=== PATIENT | female | born 1975 | race African-American/Black ===

== ENCOUNTER 2024-08-17 03:44 | Emergency (ER) | payer SELFPAY ==
[2024-08-17 03:50] VITALS: BP 147/83; PULSE 101; RESP 16; TEMP 37.7; O2SAT 100
[2024-08-17 05:36] LABS: Influenza A QL RT-PCR Positive (Negative); Influenza B QL RT-PCR Negative (Negative); RSV RNA, RT-PCR Negative (Negative); SARS-CoV-2 RNA PCR Negative (Negative)
[2024-08-17 05:39] VITALS: O2SAT 99
[2024-08-17 05:52] VITALS: BP 147/96; PULSE 99; RESP 15; O2SAT 99
--- NOTE | 2024-08-17 06:08 | ED.GENADULT ---
HPI - General Adult General Chief complaint: Upper Respiratory Infection Stated complaint: unk Time Seen by Provider: 08/17/24 05:47 History of Present Illness HPI narrative: Patient is 49-year-old female who presents to the emergency department this evening complaining of flu-like symptoms with started yesterday. Patient states that she started having a cough, body ache, sore throat and fevers. She has been taking [id number] medications and she stated that the last medicine she took was ibuprofen at 10:00 a.m. yesterday. Denies any chest pain, nausea vomiting with diarrhea. No additional symptoms or concerns at this time. Related Data Allergies Allergy/AdvReac Type Severity Reaction Status Date / Time aspirin Allergy Unknown Verified 08/17/24 05:40 Review of Systems Review of Systems: All systems are reviewed and are negative unless stated otherwise in the HPI. Exam Narrative: General: Alert, awake, afebrile, in no acute distress. HEENT: PERRL, no rhinorrhea, no post nasal drip, oropharynx clear. Neck: Trachea midline, no JVD, no lymphadenopathy. Cardiovascular: Regular rate and rhythm, no murmurs, rubs or gallops, no peripheral edema. Respiratory: Clear to auscultation bilaterally, no tachypnea, no wheezing, no rhonchi, no rubs, no respiratory distress. Abdomen: Soft, nontender, nondistended, no rebound, no guarding, no peritoneal signs. Musculoskeletal: No joint swelling or deformity, normal muscle tone. Skin: No rashes or petechia, no signs of infection. Psychiatric: Alert and oriented, normal behavior and judgment for situation. Neurological: Alert and oriented to person, place, and time. Follows all commands. No focal deficits, speech is clear and fluent. Course Vital Signs Vital signs: Vital Signs Temperature 99.9 F H 08/17/24 03:50 Pulse Rate 101 H 08/17/24 03:50 Respiratory Rate 16 08/17/24 03:50 Blood Pressure 147/83 H 08/17/24 03:50 Pulse Oximetry 100 08/17/24 03:50 Oxygen Delivery Room Air 08/17/24 03:50 Temperature 99.9 F H 08/17/24 03:50 Pulse Rate 99 08/17/24 05:52 Respiratory Rate 15 08/17/24 05:52 Blood Pressure 147/96 H 08/17/24 05:52 Pulse Oximetry 99 08/17/24 05:52 Oxygen Delivery Room Air 08/17/24 05:39 Medical Decision Making MDM Narrative Medical decision making narrative: The patient was evaluated by myself in the emergency department. History is obtained from patient who is an independent historian and physical exam was performed. External medical records were reviewed at this time. Patient was administered 1 g of Tylenol oral at this time. Viral swabs were obtained and noted to be positive for influenza A. At this time patient was administered her 1st dose of Tamiflu in the emergency department and informed that the rest of her script will be sent to her pharmacy to take as prescribed for the next 5 days. Differential diagnosis considerations include acute viral syndrome including COVID/influenza/RSV. Comorbidities impacting this visit include none. I have evaluated and discussed social determinants of health with the patient that could potentially impact subsequent diagnosis and treatment plans. On repeat assessment of the patient, reevaluation revealed that the patient is doing well and is in no acute distress. Patient symptoms have improved since she arrived to our emergency department. Repeat vital signs were all reviewed and noted to be stable. Differential diagnosis and treatment plan were discussed with the patient at bedside. Patient agrees with discussion and after shared medical decision making agrees with discharge. All questions were answered to the patient's satisfaction. Patient will follow up with her PCP in 3-5 days. Patient was provided with strict return precautions and instructed to return to the emergency department if any new or worsening symptoms develop. The patient was discharged in stable condition. Vital Signs Vital Signs: Vital Signs Temperature 99.9 F H 08/17/24 03:50 Pulse Rate 101 H 08/17/24 03:50 Respiratory Rate 16 08/17/24 03:50 Blood Pressure 147/83 H 08/17/24 03:50 Pulse Oximetry 100 08/17/24 03:50 Oxygen Delivery Room Air 08/17/24 03:50 Temperature 99.9 F H 08/17/24 03:50 Pulse Rate 99 08/17/24 05:52 Respiratory Rate 15 08/17/24 05:52 Blood Pressure 147/96 H 08/17/24 05:52 Pulse Oximetry 99 08/17/24 05:52 Oxygen Delivery Room Air 08/17/24 05:39 Lab Data Labs: Lab Results 08/17/24 Range/Units 03:55 Influenza A (RT-PCR) Positive A (Negative) Influenza B (RT-PCR) Negative (Negative) RSV (RT-PCR) Negative (Negative) SARS-CoV-2 RNA (RT-PCR) Negative (Negative) Discharge Plan Discharge Clinical Impression: Influenza Patient Disposition: Home, Self-Care Condition: Improved Instructions: Antibiotic Form, Influenza (ED) Additional Instructions: Please follow-up with your family doctor within the next 3-5 days. Maintain your oral hydration by drinking lots of fluids. Use Tylenol and or ibuprofen for fevers. Take the prescribed Tamiflu as instructed. Patient Language: Argentine Prescriptions: New oseltamivir [Tamiflu] 75 mg capsule 75 mg PO Q12H 5 Days Qty: 10 0RF Follow-up/Referrals: Dayton Grimes MD [Physician] - 3 Days UNKNOWN,DOCTOR [Primary Care Provider] - Time of Disposition: 06:11
--- OUTSIDE RECORDS SUMMARY | 2024-08-17 06:20 | XMS_ITS | Referral Summary ---
Author Organization [facility] Address [address] [place] [address] Care Team Providers Care Central Supply Nurse Name Role Phone Parvin Powers MD Primary Care Provider [phone] Source Comments [facility],non-owned Affiliates and Associated Physician Practices is amultiple site organization consisting of ambulatory clinics and hospital sitesin [place], [place], [place] and [place]. This disclosure is being madepursuant to the Care Everywhere program and may not contain all information available regarding this patient. Last updated 18.[facility] Encounters Date Type Department Care Team Description 07/20/2024 Travel 07/20/2024 8:35 AM FOUR SLIDE OPERATOR - 07/20/2024 10:44 AM FOUR SLIDE OPERATOR Emergency ER at [address] [address] Chito Morillo MD Acute alcoholic intoxication without complication (HCC) (Primary Dx) Discharge Disposition: Left Against Medical Advice/Discontinued Care from Last 3 Months Allergies Active Allergy Reactions Criticality Noted Date Comments Aspirin Urticaria Medium 05/20/2021 [place] Medications * Be aware that medications may not be up to date on this document. Alwaysverify current medications with the patient. Medication Sig Dispensed Refills Start Date End Date Status escitalopram (Lexapro) 10 MG tabletIndications:M ajor Depressive Disorder Take 1 (one) tablet by mouth once daily Reasons: Major Depressive Disorder 15 tablet 1 02/14/2024 Active folic acid (Folvite) 1 MG tabletIndications:N utritional support Take 1 (one) tablet by mouth once daily Reasons: Nutritional support 15 tablet 1 02/14/2024 Active hydrOXYzine HCl (Atarax) 10 MG tabletIndications:A nxiety Take 1 (one) tablet by mouth 4 times daily Reasons: Feeling Anxious 60 tablet 1 02/14/2024 Active naltrexone (Revia) 50 MG tabletIndications:A lcohol Use Disorder Take 1 (one) tablet by mouth once daily Reasons: Abuse or Misuse of Alcohol 15 tablet 1 02/14/2024 Active QUEtiapine (SEROquel) 25 MG tabletIndications:I nsomnia,Major Depressive Disorder Take 1 (one) tablet by mouth at bedtime Reasons: Major Depressive Disorder, Trouble Sleeping 15 tablet 1 02/14/2024 Active thiamine (Vitamin B-1) 100 MG tabletIndications:N utritional support Take 1 (one) tablet by mouth once daily Reasons: Nutritional support 15 tablet 1 02/14/2024 Active Active Problems Problem Noted Date Diagnosed Date Mood disorder 12/31/2023 Resolved Problems Problem Noted Date Diagnosed Date Resolved Date Pneumonia due to organism 08/09/2017 Immunizations Name Administration Dates Next Due INFLUENZA VACCINE, QUADR. (F LUZONE; FLULAVAL; FLUARIX; AFLURIA QUADRIVALENT; 6MO+), 0.5 ML (IIV4) 08/10/2017 Social History Tobacco Use Types Packs/Day Years Used Date Smoking Tobacco: Former Cigarettes Smokeless Tobacco: Never Tobacco Cessation:Counseling Given: Yes Alcohol Use Standard Drinks/Week Comments Yes 0 (1 standard drink = 0.6 oz pur e alcohol) 1 pint of Pierre Part daily AUDIT-C Answer Date Recorded Q1: How often do you have a drink containing alcohol? 2-3 times a week 02/14/2024 Q2: How many drinks containi ng alcohol do you have on a typical day when you are drinking? 10 or more Q3: How often do you have si x or more drinks on one occasion? Daily or almost daily 02/14/2024 Overall Financial Resource Strain (CARDIA) Answe r Date Recorded How hard is it for you to pa y for the very basics like food, housing, medical care, and heating? Very hard 12/31/2023 PHQ-2 Answer Date Recorded Patient Health Questionnaire-2 Score 1 02/14/2024 [facility] - Occupational Stress Questionnaire Answer Date Recorded Do you feel stress - tense, restless, nervous, or anxious, or unable to sleep at night because your mind is troubled all the time - these days? Rather much 12/31/2023 Hunger Vital Sign Answer Date Recorded Within the past 12 months, y ou worried that your food would run out before you got the money to buy more. Sometimes true Within the past 12 months, t he food you bought just didn't last and you didn't have money to get more. Sometimes true 11/2023 PRAPARE - Transportation Answer Date Re corded In the past 12 months, has l ack of transportation kept you from medical appointments or from getting medications? Yes 11/2023 In the past 12 months, has l ack of transportation kept you from meetings, work, or from getting things needed for daily living? Yes 12/31/2023 Housing Stability Vital Sign Answer Pollo e Recorded In the last 12 months, was t here a time when you were not able to pay the mortgage or rent on time? Yes 12/31/2023 In the last 12 months, how many places have you lived? 1 12/31/2023 In the last 12 months, was t here a time when you did not have a steady place to sleep or slept in a chcf (including now)? Yes 12/31/2023 Sex and Gender Information Value Date Recorded Sex Assigned at Not on file Gender Identity Not on file Sexual Orientation Not on file Last Filed Vital Signs Vital Sign Reading Time Taken Comments Blood Pressure 156/84 07/20/2024 10:43 AM FOUR SLIDE OPERATOR Pulse 81 07/20/2024 10:43 AM FOUR SLIDE OPERATOR Temperature 36.6 C (97.9 F) 07/20/2024 10:43 AM FOUR SLIDE OPERATOR Respiratory Rate 18 07/20/2024 10:43 AM FOUR SLIDE OPERATOR Oxygen Saturation 97% 07/20/2024 10:43 AM FOUR SLIDE OPERATOR Inhaled Oxygen Concentration 21% 08/11/2017 8 :38 AM FOUR SLIDE OPERATOR Weight 69.2 kg (152 lb 9.6 oz) 02/16/2024 11:34 AM CDT Height 175.3 cm (5' 9 ) 02/16/2024 11:34 AM CDT Body Mass Index 22.54 02/16/2024 11:34 AM CDT Functional Status Functional Status Response Date of Assess ment Is person deaf or have serious hearing difficult y? No 12/31/2023 Is person blind or have serious difficulty seein g? No 12/31/2023 Does person have serious dif ficulty walking/climbing stairs? No 12/31/2023 Does person have difficulty dressing/bathing? No 12/31/2023 Does person have difficulty doing errands alone? No 12/31/2023 Cognitive Status Response Date of Assessm ent Does person have difficulty concentrating/remembering/making decisions? No 12/31/2023 Plan of Treatment Not on file Procedures Procedure Name Priority Date/Time Associated Diagnosis Comments LIPID PROFILE AM Draw 01/01/2024 6:14 AM CDT MAMMO BILAT SCREENING W LORENA Routine 06/21/2023 2:57 PM FOUR SLIDE OPERATOR Encounter for screening mammogram for malignant neoplasm of breast from Last 3 Months or Most Recently Relevant to Health Maintenance Results * LIPID PROFILE (01/01/2024 6:14 AM CDT) Cholesterol 186 <200 mg/dL 01/01/2024 6:49 AM CDT [facility] Triglycerides 90 <150 mg/dL 01/01/2024 6:49 AM CDT [facility] HDL Cholesterol 115 >40 mg/dL 4 6:49 AM CDT [facility] LDL Calculated 53 <130 mg/dL 01/01/2024 6:49 AM CDT [facility] VLDL Calculated 18 <=30 mg/dL 4 6:49 AM CDT [facility] Chol HDL Ratio 1.6 <4.5 01/01/2024 6:49 AM CDT [facility] LDL/HDL Ratio 0.5 <5.0 01/01/2024 6:49 AM CDT [facility] Blood BLOOD SPECIMEN / Unknown Venipuncture / Unknown 01/01/2024 6:14 AM CDT 01/01/2024 6:21 AM CDT Jesse Castro MD LAB - CHEMISTRY JENNI PLATA [facility] Organization Address City/State/ZIP Co de Phone Number [facility] [address] [place] [address] * MAMMO BILAT SCREENING W LORENA (06/21/2023 2:57 PM FOUR SLIDE OPERATOR) Anatomical Region Laterality Modality Breast Bilateral Mammography 06/21/2023 3:15 PM FOUR SLIDE OPERATOR Impressions 06/21/2023 3:19 PM FOUR SLIDE OPERATOR : Annual screening mammography is recommended. OVERALL FINAL ASSESSMENT: BI-RADS Category 1: Negative. > Interpreting Provider: Dexter Menchaca MD on 06/21/2023 3:19 PM Narrative 06/21/2023 3:19 PM FOUR SLIDE OPERATOR EXAMINATION: BILATERAL DIGITAL SCREENING MAMMOGRAM AND BILATERAL BREAST TOMOSYNTHESIS HISTORY: Screening. COMPARISON: Baseline TECHNIQUE: BILATERAL digital breast tomosynthesis (DBT) and synthetic 2D digital mammogram images were obtained (bilateral craniocaudal and mediolateral oblique projections) including computer aided detection (CAD.) BREAST PARENCHYMAL COMPOSITION:Category C: The breasts are heterogeneously dense which may obscure small masses. MAMMOGRAM FINDINGS: There is no suspicious finding in either breast. Leta Shannon DO MAMMO ORDERABLES from Last 3 Months or Most Recently Relevant to Health Maintenance Advance Directives * Full Code (Latest Code Status on File) Date Activated Date Inactivated Comments 12/31/2023 5:47 PM 01/04/2024 1:53 PM * Full Code Date Activated Date Inactivated Comments 08/09/2017 2:40 AM 08/11/2017 2:12 PM * Full Code Date Activated Date Inactivated Comments 10/08/2015 4:26 AM 10/10/2015 7:26 PM Care Teams Central Supply Nurse Relationship Specialty Start Date End Date Parvin Powers MD [address] [id number] PCP - General Internal Medicine 05/25/20
--- OUTSIDE RECORDS SUMMARY | 2024-08-17 06:20 | XMS_ITS | Patient Health Summary ---
Author Organization [facility] Address [address] [place] [address] Care Team Providers Care Pug Machine Operator Name Role Phone Parvin Powers MD Primary Care Provider [phone] Note from [facility],non-owned Affiliates and Associated Physician Practices is amultiple site organization consisting of ambulatory clinics and hospital sitesin [place], [place], [place] and [place]. This disclosure is being madepursuant to the Care Everywhere program and may not contain all information available regarding this patient. Last updated 18.[facility] PriceAdvice Allergies * Aspirin(Urticaria) -Medium Criticality Medications * Be aware that medications may not be up to date on this document. Alwaysverify current medications with the patient. * escitalopram (Lexapro) 10 MG tablet(Started 02/14/2024) Take 1 (one) tablet by mouth once daily Reasons: Major Depressive Disorder 1 refill by 02/13/2025 * folic acid (Folvite) 1 MG tablet(Started 02/14/2024) Take 1 (one) tablet by mouth once daily Reasons: Nutritional support 1 refill by 02/13/2025 * hydrOXYzine HCl (Atarax) 10 MG tablet(Started 02/14/2024) Take 1 (one) tablet by mouth 4 times daily Reasons: Feeling Anxious 1 refill by 02/13/2025 * naltrexone (Revia) 50 MG tablet(Started 02/14/2024) Take 1 (one) tablet by mouth once daily Reasons: Abuse or Misuse of Alcohol 1 refill by 02/13/2025 * QUEtiapine (SEROquel) 25 MG tablet(Started 02/14/2024) Take 1 (one) tablet by mouth at bedtime Reasons: Major Depressive Disorder, Trouble Sleeping 1 refill by 02/13/2025 * thiamine (Vitamin B-1) 100 MG tablet(Started 02/14/2024) Take 1 (one) tablet by mouth once daily Reasons: Nutritional support 1 refill by 02/13/2025 Active Problems Problem Noted Date Diagnosed Date Mood disorder 12/31/2023 Resolved Problems Problem Noted Date Diagnosed Date Resolved Date Pneumonia due to organism 08/09/2017 Immunizations * INFLUENZA VACCINE, QUADR. (FLUZONE; FLULAVAL; FLUARIX; AFLURIA QUADRIVALENT; 6MO+), 0.5 ML (IIV4)(Given 08/10/2017) Social History Tobacco Use Types Packs/Day Years Used Date Smoking Tobacco: Former Cigarettes Smokeless Tobacco: Never Tobacco Cessation:Counseling Given: Yes Alcohol Use Standard Drinks/Week Comments Yes 0 (1 standard drink = 0.6 oz pur e alcohol) 1 pint of [place] daily AUDIT-C Answer Date Recorded Q1: How [...] Recorded Patient Health Questionnaire-2 Score 1 02/14/2024 [facility] - Occupational [...] place to sleep or slept in a senior living (including now)? Yes 12/31/2023 Sex and Gender Information Value Date Recorded Sex Assigned at Not on file Gender Identity Not on file Sexual Orientation Not on file Last Filed Vital Signs Vital Sign Reading Time Taken Comments Blood Pressure 156/84 07/20/2024 10:43 AM COMMERCIAL MANAGER Pulse 81 07/20/2024 10:43 AM COMMERCIAL MANAGER Temperature 36.6 C (97.9 F) 07/20/2024 10:43 AM COMMERCIAL MANAGER Respiratory Rate 18 07/20/2024 10:43 AM COMMERCIAL MANAGER Oxygen Saturation 97% 07/20/2024 10:43 AM COMMERCIAL MANAGER Inhaled Oxygen Concentration 21% 08/11/2017 8 :38 AM COMMERCIAL MANAGER Weight 69.2 kg (152 lb 9.6 oz) 02/16/2024 11:34 AM CDT Height 175.3 cm (5' 9 ) 02/16/2024 11:34 AM CDT Body Mass Index 22.54 02/16/2024 11:34 AM CDT Procedures * CARDIAC EKG ORDER(Performed 02/15/2024) * CBC W AUTO DIFFERENTIAL(Performed 02/14/2024) * COMPREHENSIVE METABOLIC PANEL(Performed 02/14/2024) * DRUG SCREEN TOX LIMITED BLD PNL 3 INHOUSE(Performed 02/14/2024) * EKG 12-LEAD(Performed 02/14/2024) Performed for Intentional overdose, initial encounter (HCC) * HCG URINE QUALITATIVE(Performed 02/14/2024) * URINE DRUG SCREEN IMMUNOASSAY(Performed 02/14/2024) * URINALYSIS REFLEX MICROSCOPIC REFLEX CULTURE(Performed 02/14/2024) * HCG URINE QUALITATIVE(Performed 01/03/2024) * URINE DRUG SCREEN IMMUNOASSAY(Performed 01/03/2024) * URINALYSIS REFLEX TO MICROSCOPIC NO CULTURE(Performed 01/03/2024) * TSH REFLEX FREE T4(Performed 01/01/2024) * LIPID PROFILE(Performed 01/01/2024) * HEMOGLOBIN A1C(Performed 01/01/2024) * COMPREHENSIVE METABOLIC PANEL(Performed 01/01/2024) * CBC W AUTO DIFFERENTIAL(Performed 01/01/2024) * MAMMO BILAT SCREENING W LORENA(Performed 06/21/2023) Performed for Encounter for screening mammogram for malignant neoplasm of breast * URINALYSIS REFLEX MICROSCOPIC REFLEX CULTURE(Performed 09/30/2021) * HCG URINE QUALITATIVE(Performed 09/30/2021) * URINE DRUG SCREEN IMMUNOASSAY(Performed 09/30/2021) * HCG URINE QUALITATIVE(Performed 06/05/2020) * TROPONIN I(Performed 06/05/2020) * CT HEAD WO CONTRAST(Performed 06/05/2020) Performed for Altered mental status, unspecified altered mental status type * URINALYSIS REFLEX MICROSCOPIC REFLEX CULTURE(Performed 06/05/2020) * URINE DRUG SCREEN IMMUNOASSAY(Performed 06/05/2020) * TROPONIN I(Performed 06/05/2020) * DRUG SCREEN TOX LIMITED BLD PNL 3 INHOUSE(Performed 06/05/2020) * COMPREHENSIVE METABOLIC PANEL(Performed 06/05/2020) * CBC W AUTO DIFFERENTIAL(Performed 06/05/2020) * EKG 12-LEAD(Performed 06/05/2020) Performed for Altered mental status, unspecified altered mental status type * CARDIAC EKG ORDER(Performed 09/12/2018) * DIFFERENTIAL MANUAL(Performed 09/11/2018) * TROPONIN I(Performed 09/11/2018) * COMPREHENSIVE METABOLIC PANEL(Performed 09/11/2018) * CBC W AUTO DIFFERENTIAL(Performed 09/11/2018) * ALCOHOL ETHYL BLOOD(Performed 09/11/2018) * EKG 12-LEAD(Performed 09/10/2018) Performed for Syncope and collapse * TRICHOMONAS RAPID TEST(Performed 12/09/2017) * CHLAMYDIA + GC AMPLIFIED PROBE(Performed 12/09/2017) * HCG URINE QUALITATIVE(Performed 12/09/2017) * URINE MICROSCOPIC ONLY REFLEX TO CULTURE(Performed 12/09/2017) * URINALYSIS REFLEX MICROSCOPIC REFLEX CULTURE(Performed 12/09/2017) * CULTURE URINE(Performed 12/09/2017) * ED EAR CERUMEN REMOVAL(Performed 09/24/2017) * URINE MICROSCOPIC ONLY REFLEX TO CULTURE(Performed 09/24/2017) * URINALYSIS REFLEX MICROSCOPIC REFLEX CULTURE(Performed 09/24/2017) * CULTURE URINE(Performed 09/24/2017) * CARDIAC RHYTHM STRIP ORDER(Performed 08/16/2017) * CARDIAC EKG ORDER(Performed 08/10/2017) * INFLUENZA A+B+RSV PCR PANEL(Performed 08/09/2017) * CT ANGIO CHEST PULM EMBOLISM(Performed 08/09/2017) Performed for Pneumonia due to organism * HCG URINE QUALITATIVE - POINT OF CARE(Performed 08/09/2017) * CULTURE BLOOD(Performed 08/09/2017) * CULTURE BLOOD(Performed 08/09/2017) * XR CHEST 1VW PORTABLE(Performed 08/08/2017) Performed for SOB (shortness of breath), Cough * URINE MICROSCOPIC ONLY REFLEX TO CULTURE(Performed 08/08/2017) * URINALYSIS REFLEX MICROSCOPIC REFLEX CULTURE(Performed 08/08/2017) * CULTURE URINE(Performed 08/08/2017) * D-DIMER(Performed 08/08/2017) * COMPREHENSIVE METABOLIC PANEL(Performed 08/08/2017) * CBC W AUTO DIFFERENTIAL(Performed 08/08/2017) * NT-PRO BNP(Performed 08/08/2017) * INFLUENZA A+B ANTIGEN RAPID(Performed 08/08/2017) * EKG 12-LEAD(Performed 08/08/2017) Performed for SOB (shortness of breath) * HCG URINE QUALITATIVE - POINT OF CARE(Performed 10/14/2016) * XR FINGER(S) RIGHT(Performed 09/01/2016) Performed for Work related injury * XR WRIST LEFT 3VW OR MORE(Performed 09/01/2016) Performed for Work related injury * INFLUENZA A+B ANTIGEN RAPID(Performed 08/04/2016) * XR CHEST 2VW(Performed 08/04/2016) Performed for Wheezing * EYE IRRIGATION WITH SAMPSON LENS(Performed 01/09/2016) * RPR(Performed 10/08/2015) * TSH(Performed 10/08/2015) * URINALYSIS REFLEX TO MICROSCOPIC NO CULTURE(Performed 10/08/2015) * URINE DRUG SCREEN IMMUNOASSAY(Performed 10/08/2015) * DRUG SCREEN TOX LIMITED BLD PNL 3 INHOUSE(Performed 10/07/2015) * COMPREHENSIVE METABOLIC PANEL(Performed 10/07/2015) * CBC W AUTO DIFFERENTIAL(Performed 10/07/2015) Results * CARDIAC EKG ORDER (02/15/2024 5:53 PM CDT) Only the most recent of3 resultswithin the time period is included. Narrative 02/15/2024 5:53 PM CDT Ordered by an unspecified provider. Scanned Document CARDIAC SERVICES ORD ERABLES * (ABNORMAL) CBC W AUTO DIFFERENTIAL (02/14/2024 7:00 PM CDT) Only the most recent of6 resultswithin the time period is included. WBC 6.1 4.0 - 10.7 x10E9/L 02/14/2024 7:19 PM CDT [facility] RBC Count 3.92 3.90 - 5.20 x10E12/L 02/14/2024 7:19 PM CDT [facility] Hemoglobin 11.1(L) 11.9 - 15.8 g/dL 02/14/2024 7:19 PM CDT [facility] Hematocrit 34.9 34.8 - 46.1 % 02/14/2024 7:19 PM CDT [facility] MCV 89.0 80.0 - 98.0 fL 02/14/2024 7:19 PM CDT [facility] MCH 28.3 26.7 - 33.6 pg 02/14/2024 7:19 PM CDT [facility] MCHC 31.8 31.7 - 36.3 g/dL 02/14/2024 7:19 PM CDT [facility] RDW-CV 16.0(H) 11.3 - 14.8 % 02/14/2024 7:19 PM CDT [facility] Platelet Count 387 150 - 420 x10E9/L 02/14/2024 7:19 PM CDT [facility] MPV 9.9 7.8 - 11.4 fL 02/14/2024 7:19 PM CDT [facility] Neutrophil % 27.6(L) 41.0 - 74.0 % 02/14/2024 7:19 PM CDT [facility] Lymphocyte % 59.4(H) 17.0 - 47.0 % 02/14/2024 7:19 PM CDT [facility] Monocyte % 7.5 3.0 - 11.0 % 02/14/2024 7:19 PM CDT [facility] Eosinophil % 4.6 0.0 - 7.0 % 02/14/2024 7:19 PM CDT [facility] Basophil % 0.7 0.0 - 1.6 % 02/14/2024 7:19 PM CDT [facility] Immature Granulocytes % 0.2 0.0 - 1.0 % 02/14/2024 7:19 PM CDT [facility] Neutrophil Absolute 1.69 1.60 - 7.50 x10E9/L 02/14/2024 7:19 PM CDT [facility] Lymphocyte Absolute 3.63 1.00 - 4.40 x10E9/L 02/14/2024 7:19 PM CDT [facility] Monocyte Absolute 0.46 0.15 - 1.00 x10E9/L 02/14/2024 7:19 PM CDT [facility] Eosinophil Absolute 0.28 0.00 - 0.60 x10E9/L 02/14/2024 7:19 PM CDT [facility] Basophil Absolute 0.04 0.00 - 0.13 x10E9/L 02/14/2024 7:19 PM CDT [facility] Blood BLOOD SPECIMEN / Unknown Venipuncture / Unknown 02/14/2024 7:00 PM CDT 02/14/2024 7:16 PM CDT Yaneth Sellers MD LAB - HEMATOLOGY ORD ERABLES [facility] [address] [place] [address] * (ABNORMAL) DRUG SCREEN TOX LIMITED BLD PNL 3 INHOUSE (02/14/2024 4:53 PM CDT) Only the most recent of3 resultswithin the time period is included. Acetaminophen <3.0(L) 10.0 - 30.0 ug/mL 02/14/2024 5:24 PM CDT [facility] Ethanol 287.0(H) <10 mg/dL 02/14/2024 5:24 PM CDT [facility] Salicylate <5.0(L) 15.0 - 30.0 mg/dL 02/14/2024 5:24 PM CDT [facility] Blood BLOOD SPECIMEN / Unknown Venipuncture / Unknown 02/14/2024 4:53 PM CDT 02/14/2024 5:03 PM CDT Narrative [facility] - 02/14/2024 5:24 PM CDT [facility] ACETAMINOPHEN COMMENT Critical values: 4 Hours Post Ingestion: Critical value > 200 g/mL 12 Hours Post Ingestion: Critical value > 50 g/mL For acute ingestion, please refer to Acetaminophen nomogram to determine the risk of toxicity based on time since ingestion and acetaminophen level (see link provided). Note the nomogram disclaimer. WARNING: Assessing the potential toxicity of an acetaminophen level on a standard risk nomogram must take into consideration many factors including any uncertainty of the time since ingestion or the possibility of other medications that may alter the peak level. Contact the [place] [facility] at or reserved for healthcare professionals to assist you in evaluating potentially toxic acetaminophen levels. Yaneth Sellers MD LAB - CHEMISTRY JENNI [facility] Organization Address City/State/ZIP Co de Phone Number [facility] [address] [place] [address] * (ABNORMAL) COMPREHENSIVE METABOLIC PANEL (02/14/2024 4:53 PM CDT) Only the most recent of6 resultswithin the time period is included. [facility] Glucose 98 70 - 105 mg/dL 02/14/2024 7:03 PM CDT [facility] Sodium 143 136 - 145 mmol/L 02/14/2024 7:03 PM CDT [facility] Potassium 4.5 3.5 - 5.1 mmol/L 02/14/2024 7:03 PM T [facility] Comment:Specimen is Moderate ly Hemolyzed. This potassium result may be falsely elevated. Chloride 110(H) 98 - 107 mmol/L 02/14/2024 7:03 PM CDT [facility] CO2 18(L) 22 - 29 mmol/L 02/14/2024 7:03 PM CDT [facility] Calcium 8.8 8.4 - 10.4 mg/dL 02/14/2024 7:03 PM CDT [facility] Anion Gap 15 6 - 16 mmol/L 02/14/2024 7:03 PM CDT [facility] BUN 10 5.3 - 18.7 mg/dL 02/14/2024 7:03 PM CDT [facility] Creatinine 0.77 0.57 - 1.11 mg/dL 02/14/2024 7:03 PM CDT [facility] Alkaline Phosphatase 59 40 - 150 U/L 02/14/2024 7:03 PM CDT [facility] ALT 12 0 - 55 U/L 02/14/2024 7:03 PM CDT [facility] AST 33 5 - 34 U/L 02/14/2024 7:03 PM CDT [facility] Comment:Specimen is Moderate ly Hemolyzed. This AST result may be falsely elevated. Protein Total 7.8 6.4 - 8.3 gm/dL 02/14/2024 7:03 PM CDT [facility] Comment:Specimen is Moderate ly Hemolyzed. This total protein result may be falsely elevated. Albumin 3.7 3.4 - 5.0 gm/dL 02/14/2024 7:03 PM CDT [facility] Bilirubin Total 0.3 0.2 - 1.2 mg/dL 02/14/2024 7:03 PM CDT [facility] eGFR by CKD-EPI >90 >=90 mL/min/1.7 3 m2 02/14/2024 7:03 PM CDT [facility] Blood BLOOD SPECIMEN / Unknown Venipuncture / Unknown 02/14/2024 4:53 PM CDT 02/14/2024 5:03 PM CDT Yaneth Sellers MD LAB - CHEMISTRY JENNI PLATA [facility] Organization Address City/State/ZIP Co de Phone Number [facility] [address] [place] [address] * EKG 12-LEAD (02/14/2024 4:41 PM CDT) Only the most recent of4 resultswithin the time period is included. Ventricular Rate 99 BPM [facility] Atrial Rate 99 BPM [facility] P-R Interval 148 ms [facility] QRS Duration ms 72 ms [facility] Q-T Interval ms 352 ms [facility] QTC Calculation (Bezet) 451 ms [facility] Calculated P [place] 54 degrees [facility] Calculated R [place] 55 degrees [facility] Calculated T [place] 58 degrees [facility] Interpretation EKG Normal sinus rhythm Normal ECG Confirmed by LEIF BOYKIN MD ([id number]) on 02/15/2024 8:56:43 PM [facility] 02/14/2024 4:41 PM CDT 02/15/2024 8:56 PM CDT Yaneth Sellers MD ECG ORDERABLES [facility] * (ABNORMAL) URINALYSIS REFLEX MICROSCOPIC REFLEX CULTURE (02/14/2024 4:24 PM CDT) Only the most recent of6 resultswithin the time period is included. Color UA Colorless(A) Yellow, Straw 02/14/2024 4:43 PM CDT [facility] Clarity UA Turbid(A) Clear 02/14/2024 4:43 PM CDT [facility] Glucose UA Normal Normal 02/14/2024 4:43 PM CDT [facility] Bilirubin UA Negative Negative 02/14/2024 4:43 PM CDT [facility] Ketone UA Negative Negative 02/14/2024 4:43 PM CDT [facility] Specific [place] UA 1.006 1.005 - 1.030 02/14/2024 4:43 PM CDT [facility] Blood UA Negative Negative 02/14/2024 4:43 PM CDT [facility] pH UA 5.5 5.0 - 9.0 pH 02/14/2024 4:43 PM CDT [facility] Protein UA Negative Negative 02/14/2024 4:43 PM CDT [facility] Urobilinogen UA Normal Normal mg/dL 02/14/2024 4:43 PM CDT [facility] Nitrite UA Negative Negative 02/14/2024 4:43 PM CDT [facility] Leukocyte UA Negative Negative 02/14/2024 4:43 PM CDT [facility] Urine Microscopy Urine microscopy not indicated 02/14/2024 4:43 PM CDT [facility] Reflex Status Culture not indicated 02/14/2024 4:43 PM CDT [facility] Urine URINE SPECIMEN OBTAINED BY CLEAN CATCH PROCEDURE / Unknown Collection / Unknown 02/14/2024 4:24 PM CDT 02/14/2024 4:39 PM CDT Narrative [facility] - 02/14/2024 4:43 PM CDT Yaneth Sellers MD LAB - URINALYSIS ORD ERABLES Performing Organization Address [facility] de Phone Number [facility] [address] [place] [address] * HCG URINE QUALITATIVE (02/14/2024 4:24 PM CDT) Only the most recent of5 resultswithin the time period is included. [facility] hCG Qualitative Urine Negative Negative 02/14/2024 5:39 PM CDT [facility] Urine URINE / Unknown Collection / Unknown 02/14/2024 4:24 PM CDT 02/14/2024 4:39 PM CDT Narrative [facility] - 02/14/2024 5:39 PM CDT Specimens containing human anti-mouse antibodies may exhibit false positive or false negative results. If qualitative interpretation is inconsistent with clinical evaluation, consider confirmation by an alternative hCG method. Yaneth Sellers MD LAB - URINALYSIS ORD ERABLES Performing Organization Address [facility] de Phone Number [facility] [address] [place] [address] * (ABNORMAL) URINE DRUG SCREEN IMMUNOASSAY (02/14/2024 4:24 PM CDT) Only the most recent of5 resultswithin the time period is included. Pathologist [facility] Amphetamines Screen Urine Not detected Not detected 02/14/2024 5:04 PM CDT [facility] Barbiturates Screen Urine Not detected Not detected 02/14/2024 5:04 PM CDT [facility] Benzodiazepines Screen Urine Not detected Not detected 02/14/2024 5:04 PM CDT [facility] Cannabinoids Screen Urine Detected(A) Not detected 02/14/2024 5:04 PM CDT [facility] Cocaine Screen Urine Not detected Not detected 02/14/2024 5:04 PM CDT [facility] Fentanyl Urine Not detected Not detected 02/14/2024 5:04 PM CDT [facility] Methadone Screen Urine Not detected Not detected 02/14/2024 5:04 PM CDT [facility] Opiate Screen Urine Not detected Not detected 02/14/2024 5:04 PM CDT [facility] Phencyclidine Screen Urine Not detected Not detected 02/14/2024 5:04 PM CDT [facility] Urine URINE / Unknown Collection / Unknown 02/14/2024 4:24 PM CDT 02/14/2024 4:39 PM CDT Narrative [facility] - 02/14/2024 5:04 PM CDT This drug screen is designed for MEDICAL purposes only. It is not to be used for legal purposes, including but not limited to worker's comp, police investigations, occupational issues, child custody, etc. Any positive result is only presumptive and must be confirmed with a separate confirmatory test ordered by the physician. Drug Screening Test Cutoff Values: AMPHETAMINES 1000 ng/mL BARBITURATES 200 ng/mL BENZODIAZEPINES 200 ng/mL CANNABINOIDS(THC) 50 ng/mL COCAINE 300 ng/mL FENTANYL 1 ng/mL METHADONE 300 ng/mL OPIATES 300 ng/mL PHENCYCLIDINE(PCP) 25 ng/mL Yaneth Sellers MD LAB - URINE CHEMISTR Y ORDERABLES Performing Organization Address City/State/[facility] Co de Phone Number [facility] [address] [place] [address] * URINALYSIS REFLEX TO MICROSCOPIC NO CULTURE (01/03/2024 6:31 AM CDT) Only the most recent of2 resultswithin the time period is included. Color UA Yellow Straw, Yellow 01/03/2024 6:51 AM CDT [facility] Clarity UA Clear Clear 01/03/2024 6:51 AM CDT [facility] Glucose UA Negative Negative 01/03/2024 6:51 AM CDT [facility] Bilirubin UA Negative Negative 01/03/2024 6:51 AM CDT [facility] Ketone UA Negative Negative 01/03/2024 6:51 AM CDT [facility] Specific [place] UA 1.025 1.005 - 1.030 01/03/2024 6:51 AM CDT [facility] Blood UA Negative Negative 01/03/2024 6:51 AM CDT [facility] pH UA 5.0 5.0 - 8.0 pH 01/03/2024 6:51 AM CDT [facility] Protein UA Negative Negative 01/03/2024 6:51 AM CDT [facility] Urobilinogen UA Negative Negative mg/dL 01/03/2024 6:51 AM CDT [facility] Nitrite UA Negative Negative 01/03/2024 6:51 AM CDT [facility] Leukocyte UA Negative Negative 01/03/2024 6:51 AM CDT [facility] Urine Microscopy Urine microscopy not indicated 01/03/2024 6:51 AM CDT [facility] Urine URINE SPECIMEN OBTAINED BY CLEAN CATCH PROCEDURE / Unknown Collection / Unknown 01/03/2024 6:31 AM CDT 01/03/2024 6:43 AM CDT Narrative [facility] - 01/03/2024 6:51 AM CDT Jesse Castro MD LAB - URINALYSIS ORD ERABLES Performing Organization Address City/[facility] Co de Phone Number [facility] [address] [place], [place] [id number] * TSH REFLEX FREE T4 (01/01/2024 6:14 AM CDT) TSH 2.224 0.350 - 4.940 uIU/mL 01/01/2024 7:00 AM CDT [facility] Blood BLOOD SPECIMEN / Unknown Venipuncture / Unknown 01/01/2024 6:14 AM CDT 01/01/2024 6:21 AM CDT Jesse Castro MD LAB - CHEMISTRY ORDE RABLES Performing Organization Address [facility] Co de Phone Number [facility] [address] [place], [place] [id number] * HEMOGLOBIN A1C (01/01/2024 6:14 AM CDT) Hemoglobin A1c 5.1 <5.7 % 01/01/2024 6:51 AM CDT [facility] Estimated Average Glucose 100 mg/dL 01/01/2024 6:51 AM CDT [facility] Blood BLOOD SPECIMEN / Unknown Venipuncture / Unknown 01/01/2024 6:14 AM CDT 01/01/2024 6:[address] [facility] - 01/01/2024 6:51 AM CDT HbA1c Interpretation: Normal: < 5.7% Pre-diabetes: 5.7-6.4% Diabetes: Equal to or greater than 6.5% Test results diagnostic of diabetes should be repeated for confirmation. Treatment target values recommended by ADA and other clinical organizations should be used to evaluate metabolic control in patients. This test should not replace glucose testing for patients with Type 1 diabetes, pediatric patients, or women. Falsely low HbA1c results may be observed in patients with clinical conditions that shorten erythrocyte life span or decrease mean erythrocyte age such as the presence of unstable hemoglobin variants, elevated hemoglobin F level or other causes of hemolytic anemia. HbA1c may not accurately reflect glycemic control when clinical conditions that affect erythrocyte survival are present. Severe Iron deficiency anemia may yield falsely high results. Hemoglobin A1c assay should not be used to diagnose or monitor diabetes in patients with malignancy, recent blood transfusion, chronic kidney or liver disease. This method may yield falsely low results when hemoglobin (HbF) exceeds 5% in the specimen. The [employer]une[employer] Alinity assay for the measurement of HbA1c is a National Glycohemoglobin Standardization Program (NGSP) certified method. Jesse Castro MD LAB - CHEMISTRY JENNI PLATA [facility] [address] [place] [address] * LIPID PROFILE (01/01/2024 6:14 AM CDT) Pathologist [facility] Cholesterol 186 <200 mg/dL 01/01/2024 6:49 AM CDT [facility] Triglycerides 90 <150 mg/dL 01/01/2024 6:49 AM CDT [facility] HDL Cholesterol 115 >40 mg/dL 07/07/202 4 6:49 AM CDT [facility] LDL Calculated 53 <130 mg/dL 01/01/2024 6:49 AM CDT [facility] VLDL Calculated 18 <=30 mg/dL 4 6:49 AM CDT [facility] Chol HDL Ratio 1.6 <4.5 01/01/2024 6:49 AM CDT [facility] LDL/HDL Ratio 0.5 <5.0 01/01/2024 6:49 AM CDT [facility] Blood BLOOD SPECIMEN / Unknown Venipuncture / Unknown 01/01/2024 6:14 AM CDT 01/01/2024 6:21 AM CDT Jesse Castro MD LAB - CHEMISTRY JENNI PLATA [facility] Organization Address City/State/ZIP Co de Phone Number [facility] [id number] [place] [address] * MAMMO BILAT SCREENING W LORENA (06/21/2023 2:57 PM COMMERCIAL MANAGER) Anatomical Region Laterality Modality Breast Bilateral Mammography 06/21/2023 3:15 PM COMMERCIAL MANAGER Impressions 06/21/2023 3:19 PM COMMERCIAL MANAGER : Annual screening mammography is recommended. OVERALL FINAL ASSESSMENT: BI-RADS Category 1: Negative. > Interpreting Provider: Dexter Menchaca MD on 06/21/2023 3:19 PM Narrative 06/21/2023 3:19 PM COMMERCIAL MANAGER EXAMINATION: BILATERAL DIGITAL SCREENING MAMMOGRAM AND BILATERAL [...] either breast. Leta Shannon DO MAMMO ORDERABLES * TROPONIN I (06/05/2020 3:39 AM COMMERCIAL MANAGER) Only the most recent of3 resultswithin the time period is included. Troponin I <0.010 <0.038 ng/mL 06/05/2020 4:31 AM COMMERCIAL MANAGER [facility] Blood BLOOD SPECIMEN / Unknown Venipuncture / Unknown 06/05/2020 3:39 AM COMMERCIAL MANAGER 06/05/2020 3:45 AM COMMERCIAL MANAGER Sterling Gutiérrez MD [facility] Organization Address City/State/ZIP Co de Phone Number [facility] [address] [place] [address] * CT HEAD NON CONTRAST (06/05/2020 1:55 AM COMMERCIAL MANAGER) Anatomical Region Laterality Modality Head Computed Tomogra phy 06/05/2020 7:47 AM COMMERCIAL MANAGER Impressions 06/05/2020 7:48 AM COMMERCIAL MANAGER Unremarkable unenhanced CT scan of the brain. *Reading Radiologist: Eleni Cope on 06/05/2020 at 7:48 AM Narrative 06/05/2020 7:[address] Head Noncontrast Indication: Altered mental status Technique: CT images of the brain were obtained at 5 mm intervals without contrast. Preliminary report was provided by [facility]. Findings: There is no radiographic evidence of intracranial hemorrhage. There is no mass-effect or midline shift. Ventricles and sulci are of normal size. The visualized paranasal sinuses are clear. Procedure Note Eleni Cope MD - 06/05/2020 CT Head Noncontrast Indication: Altered mental status Technique: CT images of the brain were obtained at 5 mm intervals without contrast. Preliminary report was provided by [facility]. Findings: There is no radiographic evidence of intracranial hemorrhage. There is no mass-effect or midline shift. Ventricles and sulci are of normal size. The visualized paranasal sinuses are clear. IMPRESSION Unremarkable unenhanced CT scan of the brain. *Reading Radiologist: Eleni Cope on 06/05/2020 at 7:48 AM Sterling Gutiérrez MD CT ORDERABLES * (ABNORMAL) DIFFERENTIAL MANUAL (09/11/2018 2:10 AM CDT) WBC Auto 6.4 x10E9/L 09/11/2018 3:19 AM CDT [facility] WBC Corrected 4.4 - 10.7 x10E9/L 09/11/2018 3:19 AM CDT [facility] nRBC /100 WBC 09/11/2018 3:19 AM CDT [facility] Neutrophil % Manual 39(L) 44 - 73 % 09/11/2018 3:19 AM CDT [facility] Lymphocytes % Manual 47(H) 20 - 43 % 09/11/2018 3:19 AM CDT [facility] Monocytes % Manual 12 5 - 13 % 09/11/2018 3:19 AM CDT [facility] Eosinophils % Manual 1 0 - 6 % 09/11/2018 3:19 AM CDT [facility] Atypical Lymphocyte % Manual 1(H) <=0 % 09/11/2018 3:19 AM CDT [facility] Cells Counted 100 # cells 09/11/2018 3:19 AM CDT [facility] RBC Morphology Normal 09/11/2018 3:19 AM CDT [facility] WBC Morph Normal 09/11/2018 3:19 AM CDT [facility] Platelet Estimation Normal 09/11/2018 3:19 AM CDT [facility] Blood BLOOD SPECIMEN / Unknown Venipuncture / Unknown 09/11/2018 2:10 AM CDT 09/11/2018 2:12 AM CDT Neeta Alvarez MD LAB - HEMATOLOGY ORD ERABLES [facility] [address] [place] [address] * (ABNORMAL) ALCOHOL ETHYL BLOOD (09/11/2018 2:10 AM CDT) Ethanol 61.7(H) <10 mg/dL 09/11/2018 2:25 AM CDT [facility] Ethanol Calculated 0.062 <=0.100 gm/dL 09/11/2018 2:25 AM CDT [facility] Blood BLOOD SPECIMEN / Unknown Venipuncture / Unknown 09/11/2018 2:10 AM CDT 09/11/2018 2:12 AM CDT Narrative [facility] - 09/11/2018 2:25 AM CDT Non Legal Serum Alcohol Neeta Alvarez MD LAB - CHEMISTRY JENNI PLATA Performing Organization Address [facility] Co de Phone Number [facility] [address] [place] [address] * (ABNORMAL) TRICHOMONAS RAPID TEST (12/09/2017 3:27 AM CDT) Trichomonas Rapid Test Positive( A) Negative 12/09/2017 3:43 AM CDT [facility] Microbiology ENTIRE VAGINA / Unknown Collection / Unknown 12/09/2017 3:27 AM CDT 12/09/2017 3:33 AM CDT Emreson Orr DO LAB - MICROBIOLOGY O BK Performing Organization Address [facility] Co de Phone Number [facility] [address] [place] [address] * CHLAMYDIA + GC AMPLIFIED PROBE (12/09/2017 3:27 AM CDT) Pathologist [facility] Chlamydia Amplified Probe Negative Negative 12/10/2017 1:47 AM CDT [facility] GC Amplified Probe Negative Negative 12/10/2017 1:47 AM CDT [facility] Microbiology ENTIRE ENDOCERVIX / Unknown Collection / Unknown 12/09/2017 3:27 AM CDT 12/09/2017 3:33 AM CDT Narrative [facility] - 12/10/2017 1:47 AM CDT Results based on detection/no detection of ribosomal RNA by amplified method. Emerson Orr DO LAB - MICROBIOLOGY Joann BOURGEOIS Performing Organization Address [facility] Co de Phone Number [facility] [address] [place], [address] [phone] * (ABNORMAL) URINE MICROSCOPIC ONLY REFLEX TO CULTURE (12/09/2017 2:35 AM CDT) Only the most recent of3 resultswithin the time period is included. Pathologist [facility] Reflex Status Culture to follow 12/09/2017 3:00 AM CDT [facility] RBC UA 0-5 0-5, None Seen # /hpf 12/09/2017 3:00 AM CDT [facility] WBC UA 0-5 0-5, None Seen # /hpf 12/09/2017 3:00 AM CDT [facility] Bacteria UA None Seen None Seen 12/09/2017 3:00 AM CDT [facility] Squamous Epithelial Cells 11-20(A) None Seen, 0-2, 3-5 /hpf 12/09/2017 3:00 AM CDT [facility] Mucus UA 1+ /LPF 12/09/2017 3:00 AM CDT [facility] Hyaline Casts 0-2 None Seen, 0-2 # /lpf 12/09/2017 3:00 AM CDT [facility] Urine URINE SPECIMEN OBTAINED BY CLEAN CATCH PROCEDURE / Unknown Collection / Unknown 12/09/2017 2:35 AM CDT 12/09/2017 2:39 AM CDT Narrative [facility] - 12/09/2017 3:00 AM CDT Emerson Orr DO LAB - URINALYSIS ORD ERABLES Performing Organization Address City/[facility]/ZIP Co de Phone Number [facility] [address] [place] [address] * CULTURE URINE (12/09/2017 2:35 AM CDT) Only the most recent of3 resultswithin the time period is included. Culture Urine <10,000 CFU/mL urogenital joshua LEI 12/10/2017 7:16 AM CDT [facility] Urine URINE SPECIMEN OBTAINED BY CLEAN CATCH PROCEDURE / Unknown Collection / Unknown 12/09/2017 2:35 AM CDT 12/09/2017 2:39 AM CDT Emerson Orr DO LAB - MICROBIOLOGY O RDERABLES [facility] [address] [place] [address], [facility] [phone] * ED EAR CERUMEN REMOVAL (09/24/2017 6:34 AM CDT) Narrative Sterling Gutiérrez MD - 09/24/2017 6:34 AM CDT Sterling Gutiérrez MD 09/24/2017 6:34 AM Cerumen Removal Date/Time: 09/24/2017 6:14 AM Performed by: STERLING GUTIÉRREZ Authorized by: STERLING GUTIÉRREZ Consent: Verbal consent obtained. Risks and benefits: risks, benefits and alternatives were discussed Consent given by: patient Patient understanding: patient states understanding of the procedure being performed Patient consent: the patient's understanding of the procedure matches consent given Procedure consent: procedure consent matches procedure scheduled Patient identity confirmed: verbally with patient and arm band Anesthesia: Local Anesthetic: none Location details: left ear Procedure type: irrigation Sedation: Patient sedated: no Patient tolerance: Patient tolerated the procedure well with no immediate complications Comments: Minimal cerumen removed Sterling Gutiérrez MD PROCEDURE/MINOR SURG ICAL ORDERABLES * CARDIAC RHYTHM STRIP ORDER (08/16/2017 8:21 PM COMMERCIAL MANAGER) Narrative 08/16/2017 8:21 PM COMMERCIAL MANAGER Ordered by an unspecified provider. Scanned Document CARDIAC SERVICES ORD ERABLES * (ABNORMAL) INFLUENZA A+B+RSV PCR PANEL (08/09/2017 3:12 AM COMMERCIAL MANAGER) Influenza A PCR Detected(A) Not detected, Invalid 08/09/2017 8:20 AM COMMERCIAL MANAGER [facility] Influenza B PCR Not detected Not detected, Invalid 08/09/2017 8:20 AM COMMERCIAL MANAGER [facility] RSV PCR Not detected Not detected, Invalid 08/09/2017 8:20 AM COMMERCIAL MANAGER [facility] Microbiology NASOPHARYNGEAL SWAB / Unknown Collection / Unknown 08/09/2017 3:12 AM COMMERCIAL MANAGER 08/09/2017 3:19 AM COMMERCIAL MANAGER Narrative [facility] - 08/09/2017 8:20 AM COMMERCIAL MANAGER Droplet Precautions Required. Carlos Enrique Orozco CANDY CATCHER-ANALYSIS LEAD LAB - MICROBIO LOGY ORDERABLES [facility] [address] [place] [address], [facility] [phone] * CT CHEST PE (08/09/2017 2:13 AM COMMERCIAL MANAGER) Anatomical Region Laterality Modality Chest Computed Tomogra phy 08/09/2017 2:16 AM COMMERCIAL MANAGER Impressions 08/09/2017 2:23 AM COMMERCIAL MANAGER No pulmonary embolus evident. Right lower lobe more so than middle lobe consolidating infiltrate. Multi lobar bronchial wall thickening and mucous plugging consistent with bronchitis. Narrative 08/09/2017 2:[address] PE Protocol Clinical Indication: Shortness of breath. Technique: The pulmonary embolus protocol was utilized. Axial CT images from the lung apices to the lung bases were obtained following Omnipaque 350 85 cc intravenous contrast administration. Multiplanar maximum intensity projection reconstructions were created on an independent workstation. Findings: There is no dominant central or proximal order branch vessel filling defect to suggest proximal order embolus. No distention the main pulmonary artery or the right ventricle. No aortic contour abnormality. Right hilar lymphadenopathy with left hilar lymph node hyperplasia. Subcutaneous carinal lymph node hyperplasia. There are infiltrates and bronchial wall thickening and mucous plugging within the medial middle lobe. Greater amount of consolidating infiltrate throughout the right lower lobe consistent with multi lobar pneumonitis. There is some mucous plugging in the left lung base but no peripheral alveolar infiltrate. Focal left upper lobe mucous plugging as well. Reconstructed images again shows no pulmonary embolus no rib deformity. The upper abdomen shows no adrenal enlargement or intrahepatic biliary ductal dilatation. Procedure Note Edilson Jones MD - 08/09/2017 CT PE Protocol Clinical Indication: Shortness of breath. Technique: The pulmonary embolus protocol was utilized. Axial CT images from the lung apices to the lung bases were obtained following Omnipaque 350 85 cc intravenous contrast administration. Multiplanar maximum intensity projection reconstructions were created on an independent workstation. Findings: There is no dominant central or proximal order branch vessel filling defect to suggest proximal order embolus. No distention the main pulmonary artery or the right ventricle. No aortic contour abnormality. Right hilar lymphadenopathy with left hilar lymph node hyperplasia. Subcutaneous carinal lymph node hyperplasia. There are infiltrates and bronchial wall thickening and mucous plugging within the medial middle lobe. Greater amount of consolidating infiltrate throughout the right lower lobe consistent with multi lobar pneumonitis. There is some mucous plugging in the left lung base but no peripheral alveolar infiltrate. Focal left upper lobe mucous plugging as well. Reconstructed images again shows no pulmonary embolus no rib deformity. The upper abdomen shows no adrenal enlargement or intrahepatic biliary ductal dilatation. IMPRESSION No pulmonary embolus evident. Right lower lobe more so than middle lobe consolidating infiltrate. Multi lobar bronchial wall thickening and mucous plugging consistent with bronchitis. Sterling Gutiérrez MD CT ORDERABLES * HCG URINE QUALITATIVE - POINT OF CARE (IP) (08/09/2017 1:35 AM COMMERCIAL MANAGER) Only the most recent of2 resultswithin the time period is included. HCG Qual Urine Negative Negative [facility] QC Verified Yes Yes [facility] POC T TESTING Urine URINE / Unknown 08/09/2017 1 :35 AM COMMERCIAL MANAGER Sterling Gutiérrez MD LAB - POINT OF CARE ORDERABLES Performing Organization Address City/[facility]/ZIP Co de Phone Number [facility] [address] [place] [address], [facility] [phone] * CULTURE BLOOD (08/09/2017 12:28 AM COMMERCIAL MANAGER) Only the most recent of2 resultswithin the time period is included. Culture No growth day 5 LEI 08/14/2017 5:00 AM COMMERCIAL MANAGER [facility] Blood PERIPHERAL BLOOD / Unknown Venipuncture / Unknown 08/09/2017 12:28 AM COMMERCIAL MANAGER 08/09/2017 12:40 AM COMMERCIAL MANAGER Sterling Gutiérrez MD LAB - MICROBIOLOGY O RDERABLES Performing Organization Address City/[facility]/ZIP Co de Phone Number [facility] [address] [place] [address], [facility] [phone] * XR CHEST 1VW PORTABLE (08/08/2017 11:23 PM COMMERCIAL MANAGER) Anatomical Region Laterality Modality Chest Radiographic Carolin ging 08/08/2017 11:3 3 PM COMMERCIAL MANAGER Impressions 08/08/2017 11:34 PM COMMERCIAL MANAGER Right medial lower lobe infiltrates. Narrative 08/08/2017 11:34 PM COMMERCIAL MANAGER Portable Chest AP History: Shortness of breath beginning today in a 42-year-old female Comparison: August 04, 2016 Findings: Nonstandard portable exam. The heart size is normal. There are right medial basilar infiltrate consistent with a focal pneumonitis. Hyperexpansion of lungs. No asymmetric hilar density. No pneumothorax or pleural effusion. Procedure Note Edilson Jones MD - 08/08/2017 Portable Chest AP History: Shortness of breath beginning today in a 42-year-old female Comparison: August 04, 2016 Findings: Nonstandard portable exam. The heart size is normal. There are right medial basilar infiltrate consistent with a focal pneumonitis. Hyperexpansion of lungs. No asymmetric hilar density. No pneumothorax or pleural effusion. IMPRESSION Right medial lower lobe infiltrates. Sterling Gutiérrez MD DIAGNOSTIC IMAGING O RDERABLES * NT-PRO BNP (08/08/2017 11:11 PM COMMERCIAL MANAGER) NT-proBNP 43.0 <300.0 pg/mL 08/08/2017 11:43 PM COMMERCIAL MANAGER [facility] Blood BLOOD SPECIMEN / Unknown Venipuncture / Unknown 08/08/2017 11:11 PM COMMERCIAL MANAGER 08/08/2017 11:20 PM COMMERCIAL MANAGER Narrative [facility] - 08/08/2017 11:43 PM COMMERCIAL MANAGER NT-proBNP Patient Age Acute HF Unlikely Acute HF Likely <50 years <300 pg/mL >450 pg/mL 50-75 years <300 pg/mL >900 pg/mL >75 years <300 pg/mL >1800 pg/mL Reference: JODY Blanco et al. ICON Study. Heart Journal (2006) 27, 330- [phone] Both BNP and NT-proBNP derive from the precursor molecule called proBNP which is secreted from the ventricles in response to ventricle volume expansion and/or pressure overload. The secreted proBNP is subsequently cleaved by enzymes to form BNP, the active hormone and NT-proBNP an inactive metabolite. NT-proBNP has a longer half-life of 1.5-2.0 hours verses BNP with a half-life of 20 min for BNP. Both are useful biomarkers of ventricular distension due to increased intracardiac pressure. Both BNP and NT-proBNP increase with age and renal insufficiency. Increased concentrations of NT-proBNP have also been observed in the setting of acute myocardial infarction, right ventricular failure, valvular heart disease, and atrial fibrillation. Sterling Gutiérrez MD LAB - CHEMISTRY JENNI PLATA [facility] Organization Address City/State/ZIP Co de Phone Number [facility] [address] [place] [address] * INFLUENZA A+B ANTIGEN RAPID (08/08/2017 11:11 PM COMMERCIAL MANAGER) Only the most recent of2 resultswithin the time period is included. [facility] Influenza A Antigen Negative Negative 08/08/2017 11:37 PM COMMERCIAL MANAGER [facility] Influenza B Antigen Negative Negative 08/08/2017 11:37 PM COMMERCIAL MANAGER [facility] Microbiology NASOPHARYNGEAL SWAB / Unknown Collection / Unknown 08/08/2017 11:11 PM COMMERCIAL MANAGER 08/08/2017 11:20 PM COMMERCIAL MANAGER Narrative [facility] - 08/08/2017 11:37 PM COMMERCIAL MANAGER The sensitivity of rapid tests for influenza A and B antigens, according to the published reports , ranges from 30-70% when compared to PCR and viral culture. For H1N1 influenza A, the sensitivity varies from 30-50%. For other influenza A strains, the sensitivity ranges from 50-70%. For influenza B virus, the sensitivity is approximately 30%. A negative result does not exclude influenza infection. False-positive (and true-negative) influenza test results are more likely to occur when disease prevalence is low, which is generally at the beginning and end of the influenza season. False-negative (and true-positive) influenza test results are more likely to occur when disease prevalence is high, which is typically at the height of the influenza season. Sterling Gutiérrez MD LAB - MICROBIOLOGY O RDERABLES Performing Organization Address City/State/[facility] Co de Phone Number [facility] [address] [place] [address] * (ABNORMAL) D-DIMER (08/08/2017 11:11 PM COMMERCIAL MANAGER) [facility] D-Dimer 0.89(H) 0.17 - 0.5 mg/L FEU 08/08/2017 11:45 PM COMMERCIAL MANAGER [facility] Blood BLOOD SPECIMEN / Unknown Venipuncture / Unknown 08/08/2017 11:11 PM COMMERCIAL MANAGER 08/08/2017 11:20 PM COMMERCIAL MANAGER Narrative [facility] - 08/08/2017 11:45 PM COMMERCIAL MANAGER The [employer] D-Dimer assay is intended for use as an aid in diagnosis of venous thromboembolism [(VTE): deep vein thrombosis (DVT), pulmonary embolism (PE), and disseminated intravascular coagulation (DIC)], and has received U.S. Food and Drug Administration (FDA) approval to exclude VTE in patients with low or moderate pretest probability of PE or DVT (per Wells' rules). At a clinical cut-off value 0.50 mg/L FEU, the Negative Predictive Value of this assay is 99.8% for excluding PE and 100% for excluding DVT. A very low percentage of patients with VTE may yield D-Dimer results below the cut-off value. An elevated D-Dimer result has low specificity (40.4% for PE, 35.5% for DVT) and is a poor predictor of VTE. An elevated D-Dimer result may indicate DIC in the appropriate clinical setting. Results of this test should always be interpreted in conjunction with the patient's medical history, clinical presentation, and other findings. Sterling Gutiérrez MD LAB - COAGULATION OR DERABLES Performing Organization Address City/State/[facility] Co de Phone Number [facility] [address] [place] [phone] * XR FINGER(S) RIGHT (09/01/2016 4:54 PM COMMERCIAL MANAGER) Anatomical Region Laterality Modality Wrist / Hand, Upper Extremity Ra diographic Imaging 09/01/2016 4:5 9 PM COMMERCIAL MANAGER Impressions 09/01/2016 5:00 PM COMMERCIAL MANAGER No acute osseous abnormality Narrative 09/01/2016 5:00 PM COMMERCIAL MANAGER Right fingers 3 views INDICATION: Right fourth finger pain, trauma and injury. FINDINGS: 4 views of the right fingers with attention to the fourth digit reveals no evidence of displaced fracture, subluxation or dislocation. If symptoms persist, follow-up exam may be of further use to exclude an occult process. Procedure Note Reid Gregg MD - 09/01/2016 Right fingers 3 views INDICATION: Right fourth finger pain, trauma and injury. FINDINGS: 4 views of the right fingers with attention to the fourth digit reveals no evidence of displaced fracture, subluxation or dislocation. If symptoms persist, follow-up exam may be of further use to exclude an occult process. IMPRESSION No acute osseous abnormality Quinn Avila DO DIAGNOSTIC IMAGING ORDERABLES * XR WRIST 3+ VW LEFT (09/01/2016 4:53 PM COMMERCIAL MANAGER) Anatomical Region Laterality Modality Wrist / Hand Radiographic Carolin ging 09/01/2016 5:00 PM COMMERCIAL MANAGER Impressions 09/01/2016 5:01 PM COMMERCIAL MANAGER No acute osseous abnormality Narrative 09/01/2016 5:01 PM COMMERCIAL MANAGER Left wrist 3 views INDICATION: left wrist pain, initial encounter. FINDINGS: 3 views of the left wrist without prior show no acute fracture, subluxation or dislocation. If symptoms persist, follow-up exam may be of further use to exclude occult process. Procedure Note Reid Gregg MD - 09/01/2016 Left wrist 3 views INDICATION: left wrist pain, initial encounter. FINDINGS: 3 views of the left wrist without prior show no acute fracture, subluxation or dislocation. If symptoms persist, follow-up exam may be of further use to exclude occult process. IMPRESSION No acute osseous abnormality Quinn Avila DIAGNOSTIC IMAGING ORDERABLES * XR CHEST PA AND LATERAL (08/04/2016 8:33 PM COMMERCIAL MANAGER) Anatomical Region Laterality Modality Chest Radiographic Carolin ging 08/04/2016 9:04 PM COMMERCIAL MANAGER Impressions 08/04/2016 9:06 PM COMMERCIAL MANAGER Hyperinflation with question of bronchitis. In addition, patchy infiltrates present within the lingula.. Narrative 08/04/2016 9:06 PM COMMERCIAL MANAGER Chest Two Views History: Difficult breathing, wheezing Comparison:None Findings: The heart size is normal. The pulmonary vessels are normal. The pulmonary lindsay has somewhat of a dirty configuration that may represent bronchitis. There are some increased density in the lingula concerning for a focal infiltrate. The lungs are hyperinflated. No pleural effusion. No pneumothorax. No paraspinal soft tissue swelling.No hilar enlargement or major airway displacement. Procedure Note Edilson Jones MD - 08/04/2016 Chest Two Views History: Difficult breathing, wheezing Comparison:None Findings: The heart size is normal. The pulmonary vessels are normal. The pulmonary lindsay has somewhat of a dirty configuration that may represent bronchitis. There are some increased density in the lingula concerning for a focal infiltrate. The lungs are hyperinflated. No pleural effusion. No pneumothorax. No paraspinal soft tissue swelling.No hilar enlargement or major airway displacement. IMPRESSION Hyperinflation with question of bronchitis. In addition, patchy infiltrates present within the lingula.. Louis Neely MD DIAGNOSTIC IMAGING O RDERABLES * RPR (10/08/2015 4:28 AM CDT) RPR Non Reactive Non Reactive 10/09/2015 1:04 AM CDT [facility] Blood BLOOD SPECIMEN / Unknown 10/08/2015 4:28 AM CDT 10/08/2015 10:54 PM CDT Fransisco Washington MD LAB - CHEMISTRY ORDERABLES Performing Organization Address [facility] Co de Phone Number [facility] [address] [place] [address] * TSH (10/08/2015 4:28 AM CDT) TSH 2.48 0.358 - 3.740 uIU/mL 10/08/2015 5:05 AM CDT [facility] Blood BLOOD SPECIMEN / Unknown 10/08/2015 4:28 AM CDT 10/08/2015 4:28 AM CDT Jesse Castro MD LAB - CHEMISTRY ORDArash PLATA Performing Organization Address [facility] Co de Phone Number [facility] [address] [place] [address] Care Teams Pug Machine Operator Relationship Specialty Start Date End Date Parvin Powers MD [address] [facility] [address] [place] [id number] PCP - General Internal Medicine 05/25/20
--- OUTSIDE RECORDS SUMMARY | 2024-08-17 06:20 | XMS_ITS | Clinical Summary ---
Author Organization [facility] Address [address] [place] [place] [address] Care Team Providers Care Utility Agent Name Role Phone Parvin Powers MD Primary Care Provider [phone] Source Comments [facility],non-owned Affiliates and Associated Physician Practices is amultiple site organization consisting of ambulatory clinics and hospital sitesin [place], [place], [place] and [place]. This disclosure is being madepursuant to the Care Everywhere program and may not contain all information available regarding this patient. Last updated 18.[facility] [id number] Allergies Active Allergy Reactions Criticality Noted Date [...] Resolved Date Pneumonia due to organism 08/09/2017 Encounters Date Type Department Care Team Description 07/20/2024 8:35 AM DESIGN DRAFTER CHIEF - 07/20/2024 10:44 AM DESIGN DRAFTER CHIEF Emergency ER at [address] [address] Chito Morillo MD Acute alcoholic intoxication without complication (HCC) (Primary Dx) Discharge Disposition: Left Against Medical Advice/Discontinued Care 07/20/2024 Travel from Last 3 Months Immunizations Name Administration Dates Next Due INFLUENZA VACCINE, QUADR. (F LUZONE; FLULAVAL; FLUARIX; AFLURIA QUADRIVALENT; 6MO+), 0.5 ML (IIV4) 08/10/2017 Social History Tobacco Use Types Packs/Day Years Used Date Smoking Tobacco: Former Cigarettes Smokeless Tobacco: Never Tobacco Cessation:Counseling Given: Yes Alcohol Use Standard Drinks/Week Comments Yes 0 (1 standard drink = 0.6 oz pur e alcohol) 1 pint of Hagerman daily AUDIT-C Answer Date Recorded Q1: How [...] Recorded Patient Health Questionnaire-2 Score 1 02/14/2024 [facility] [place] of Occupat ional Health - Occupational Stress [...] place to sleep or slept in a mcc (including now)? Yes 12/31/2023 Sex and Gender Information Value Date Recorded Sex Assigned at Not on file Gender Identity Not on file Sexual Orientation Not on file Last Filed Vital Signs Vital Sign Reading Time Taken Comments Blood Pressure 156/84 07/20/2024 10:43 AM DESIGN DRAFTER CHIEF Pulse 81 07/20/2024 10:43 AM DESIGN DRAFTER CHIEF Temperature 36.6 C (97.9 F) 07/20/2024 10:43 AM DESIGN DRAFTER CHIEF Respiratory Rate 18 07/20/2024 10:43 AM DESIGN DRAFTER CHIEF Oxygen Saturation 97% 07/20/2024 10:43 AM DESIGN DRAFTER CHIEF Inhaled Oxygen Concentration 21% 08/11/2017 8 :38 AM DESIGN DRAFTER CHIEF Weight 69.2 kg (152 lb 9.6 oz) 02/16/2024 11:34 AM CDT Height 175.3 cm (5' 9 ) 02/16/2024 11:34 AM CDT Body Mass Index 22.54 02/16/2024 11:34 AM CDT Plan of Treatment Health Maintenance Due Date Last Done Comments OGUARD (AGES 45-75) - COL ON CA SCREENING 1976 COLON MONITORING 1976 COLONOSCOPY - COLON CA SCREENING 1976 CT COLONOGRAPHY - COLON CA SCREENING 1976 Colorectal Cancer Screening 1976 FIT - COLON CA SCREENING 1976 FLEX SIG - COLON CA SCREENING 1976 PAP SMEAR 1976 HIV SCREENING 1991 HEPATITIS C SCREENING 02/26/1994 DTAP/TDAP/TD VACCINES (1 - Tdap) 1995 HEPATITIS B VACCINE (1 of 3 - 19+ 3-dose series) 1995 COVID-19 VACCINE (3 - 2023-2 5 season) 2024 11/07/2021, 08/19/2021 INFLUENZA VACCINE (#1) 2024 08/10/2017 DEPRESSION SCREENING 06/27/2024 02/16/2024, 02/17/2022 MAMMOGRAM 06/21/2025 06/21/2023, 06/21/2023 ZOSTER VACCINE (1 of 2) 2026 LIPID TESTING 12/31/2028 01/01/2024 HIB VACCINE Aged Out No longer eligi ble based on patient's age to complete this topic HPV VACCINE Aged Out No longer eligi ble based on patient's age to complete this topic MENINGOCOCCAL (Group B) VACCINE Aged Out No longer eligible b ased on patient's age to complete this topic MENINGOCOCCAL VACCINE Aged Out No raphael marie eligible based on patient's age to complete this topic PNEUMOCOCCAL VACCINE Aged Out No long er eligible based on patient's age to complete this topic Procedures Procedure Name Priority Date/Time Associated Diagnosis Comments LIPID PROFILE AM Draw 01/01/2024 6:14 AM CDT MAMMO BILAT SCREENING W LORENA Routine 06/21/2023 2:57 PM DESIGN DRAFTER CHIEF Encounter for screening mammogram for malignant neoplasm of breast from Last 3 Months or Most Recently Relevant to Health Maintenance Results * LIPID PROFILE (01/01/2024 6:14 AM CDT) Cholesterol 186 <200 mg/dL 01/01/2024 6:49 AM CDT [facility] Triglycerides 90 <150 mg/dL 01/01/2024 6:49 AM CDT [facility] HDL Cholesterol 115 >40 mg/dL 4 6:49 AM CDT [facility] LDL Calculated 53 <130 mg/dL 01/01/2024 6:49 AM CDT [facility] VLDL Calculated 18 <=30 mg/dL 4 6:49 AM CDT [facility] Chol HDL Ratio 1.6 <4.5 01/01/2024 6:49 AM CDT [facility] LDL/HDL Ratio 0.5 <5.0 01/01/2024 6:49 AM CDT [facility] Blood BLOOD SPECIMEN / Unknown Venipuncture / Unknown 01/01/2024 6:14 AM CDT 01/01/2024 6:21 AM CDT Jesse Castro MD LAB - CHEMISTRY ORDE SHERLYN [facility] Organization Address City/State/ZIP Co de Phone Number [facility] [address] [place] [address] * MAMMO BILAT SCREENING W LORENA (06/21/2023 2:57 PM DESIGN DRAFTER CHIEF) Anatomical Region Laterality Modality Breast Bilateral Mammography 06/21/2023 3:15 PM DESIGN DRAFTER CHIEF Impressions 06/21/2023 3:19 PM DESIGN DRAFTER CHIEF : Annual screening mammography is recommended. OVERALL FINAL ASSESSMENT: BI-RADS Category 1: Negative. > Interpreting Provider: Dexter Menchaca MD on 06/21/2023 3:19 PM Narrative 06/21/2023 3:19 PM DESIGN DRAFTER CHIEF EXAMINATION: BILATERAL DIGITAL SCREENING MAMMOGRAM AND BILATERAL [...] 4:26 AM 10/10/2015 7:26 PM Care Teams Utility Agent Relationship Specialty Start Date End Date Parvin Poewrs MD [address] [address] PCP - General Internal Medicine 05/25/20
--- OUTSIDE RECORDS SUMMARY | 2024-08-17 06:20 | XMS_ITS | Clinical Summary ---
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
--- OUTSIDE RECORDS SUMMARY | 2024-08-17 06:21 | XMS_ITS | Clinical Summary ---
Author Organization [facility] Address [address] [place] [phone] Care Team Providers Care Bottle Line Worker Name Role Phone No, Physician Primary Care Provider [phone] Allergies Active Allergy Reactions Criticality Noted Date Comments Aspirin Other (See comments),Urticaria Medium 05/20 [place] Medications dicyclomine (BENTYL) 20 mg tablet Take 1 tablet (20 mg total) by mouth every 6 (six) hours as needed (abdominal cramping) 12 tablet 2 Active albuterol HFA (PROVENTIL HFA,VENTOLIN HFA,PROAIR HFA) 90 mcg/actuation inhaler Inhale 2 puffs every 4 (four) hours as needed for wheezing or shortness of breath 1 each 3 Active ibuprofen (ADVIL,MOTRIN) 600 mg tablet Take 1 tablet (600 mg total) by mouth every 6 (six) hours as needed for pain 20 tablet 3 Active fluticasone propionate (FLONASE) 50 mcg/actuation nasal spray Administer 1 spray into each nostril 2 (two) times a day 16 g 3 Active diphenhydrAMINE 25 mg capsule Take 1 tablet/capsule (25 mg total) by mouth every 6 (six) hours as needed for itching 20 capsule 3 Active calamine lotionIndicatio ns:skin irritation Apply topically as needed for itching 120 mL 3 Active naproxen (NAPROSYN) 500 mg tablet Take 1 tablet (500 mg total) by mouth 2 (two) times a day as needed for pain Take with food. 20 tablet 4 Active Active Problems Problem Noted Date Diagnosed Date Acne-like skin bumps 06/16/2020 Surgical History Surgery Date Site/Laterality Comments HAND SURGERY Left Medical History Medical History Date Comments Asthma Depression Anemia Social History Tobacco Use Types Packs/Day Years Used Date Smoking Tobacco: Some Days Smokeless Tobacco: Never Tobacco Cessation:Ready to Q uit: Not Asked; Counseling Given: Not Answered Comments:2 packs per week Alcohol Use Standard Drinks/Week Comments Yes 0 (1 standard drink = 0.6 oz pur e alcohol) Social drinker Personal Safety Answer Date Recorded Have you ever been in or are you currently in a harmful physical or emotional relationship or is someone making you feel afraid or unsafe? Denies 05/11/2024 Comments No Sex and Gender Information Value Date Recorded Sex Assigned at Not on file Legal Sex Female 1:16 PM INTERACTIVE MEDIA MARKETING DIRECTOR Gender Identity Not on file Sexual Orientation Not on file Obstetrics History Last Filed Vital Signs Vital Sign Reading Time Taken Comments Blood Pressure 102/53 05/11/2024 9:27 PM INTERACTIVE MEDIA MARKETING DIRECTOR Pulse 118 05/11/2024 9:27 PM INTERACTIVE MEDIA MARKETING DIRECTOR Temperature 37.1 C (98.7 F) 05/11/2024 9:27 PM INTERACTIVE MEDIA MARKETING DIRECTOR Respiratory Rate 20 05/11/2024 9:27 PM INTERACTIVE MEDIA MARKETING DIRECTOR Oxygen Saturation 100% 05/11/2024 9:27 PM INTERACTIVE MEDIA MARKETING DIRECTOR Inhaled Oxygen Concentration - - Weight 63.5 kg (140 lb) 05/11/2024 9:27 PM INTERACTIVE MEDIA MARKETING DIRECTOR Height 172.7 cm (5' 8 ) 05/11/2024 9:27 PM INTERACTIVE MEDIA MARKETING DIRECTOR Body Mass Index 21.29 05/11/2024 9:27 PM INTERACTIVE MEDIA MARKETING DIRECTOR Plan of Treatment Health Maintenance Due Date Last Done Comments Cervical Cancer Screening 1976 Colon Cancer Screening-Colonoscopy 1976 Depression Screening 1976 Hepatitis C Screening 1976 DTaP/Tdap/Td Vaccine (1 - Tdap) 1987 Hepatitis B Screening 1994 Regular Well Visit/Exam 18-64 1994 Pneumococcal vaccine <65 (1 of 2 - PCV) 1995 Influenza Vaccine (#1) 2024 08/10/2017 Breast Cancer Screening-Mammogram 06/21/2024 023, 06/21/2023 Insurance [facility] [employer] [facility] [employer] Care Teams Bottle Line Worker Relationship Specialty Start Date End Date No, Physician PCP - General 03/15/21
--- OUTSIDE RECORDS SUMMARY | 2024-08-17 06:21 | XMS_ITS | Referral Summary ---
Author Organization [facility] Address [address] [place] [address] Care Team Providers Care Harbor Tug Captain Name Role Phone No, Physician Primary Care Provider [phone] Allergies Active Allergy Reactions Criticality Noted Date [...] Date Diagnosed Date Acne-like skin bumps 06/16/2020 Social History Tobacco Use Types Packs/Day Years [...] on file Legal Sex Female 1:16 PM BRAIDED RUG MAKER Gender Identity Not on file Sexual Orientation Not on file Last Filed Vital Signs Vital Sign Reading Time Taken Comments Blood Pressure 102/53 05/11/2024 9:27 PM BRAIDED RUG MAKER Pulse 118 05/11/2024 9:27 PM BRAIDED RUG MAKER Temperature 37.1 C (98.7 F) 05/11/2024 9:27 PM BRAIDED RUG MAKER Respiratory Rate 20 05/11/2024 9:27 PM BRAIDED RUG MAKER Oxygen Saturation 100% 05/11/2024 9:27 PM BRAIDED RUG MAKER Inhaled Oxygen Concentration - - Weight 63.5 kg (140 lb) 05/11/2024 9:27 PM BRAIDED RUG MAKER Height 172.7 cm (5' 8 ) 05/11/2024 9:27 PM BRAIDED RUG MAKER Body Mass Index 21.29 05/11/2024 9:27 PM BRAIDED RUG MAKER Plan of Treatment Not on file Insurance [facility] [employer] [facility] Care Teams Harbor Tug Captain Relationship Specialty Start Date End Date No, Physician PCP - General 03/15/21
[2024-08-17] MEDS: OSELTAMIVIR PHOSPHATE 75 MG CAPSULE PO (06:34)
[2024-08-17] MEDS: ACETAMINOPHEN 500 MG TABLET 1000 MG PO (06:34)
== END 2024-08-17 06:47 | disposition home or self-care (01) ==
LOC: ANHED 06:19
PROVIDERS: Emergency Provider Emergency Medicine
DX: J11.1 Influenza due to unidentified influenza virus with other respiratory manifestations (principal); Z20.822 Contact with and (suspected) exposure to COVID-19
CPT/HCPCS: 87637; 99283; A9270